=== PATIENT | female | born 1990 ===

== ENCOUNTER 2022-04-11 14:02 | Inpatient (IN) | payer SELFPAY ==
[2022-04-11] MEDS ORDERED: ONDANSETRON 4 MG/2 ML INJ IV ONE (21:27)
[2022-04-11] MEDS ORDERED: MORPHINE 4 MG/1 ML INJ IV ONE (21:27)
[2022-04-11] MEDS ORDERED: SODIUM CHLORIDE 0.9% 1000 ML 1,000 ML IV ONE (21:27)
[2022-04-11] MEDS ORDERED: ACETAMINOPHEN 325 MG TAB PO ONE (21:28)
[2022-04-11 22:07] LABS: Color,Urine Yellow (Yellow)
[2022-04-11 22:10] LABS: Bacteria,Urine 1+ /HPF (Negative); Mucus,Urine 3+ /HPF
[2022-04-11 22:11] LABS: HCG Qualitative,Urine Negative (Negative)
[2022-04-11 22:13] LABS: Basophils % (Auto) 0.2 % (0.0-1.8); Hematocrit 33.7 % (30.3-42.9); Hemoglobin 11.8 gm/dl (10.1-14.3); Lymphocytes # (Auto) 1.4 K/mm3 (1.2-5.4); Lymphocytes % (Auto) 7.6 % (13.4-35.0); Mean Corpuscular HGB Conc 35 % (30-34); Mean Corpuscular Volume 94 fl (79-97); Monocytes # (Auto) 1.9 K/mm3 (0.0-0.8); Monocytes % (Auto) 10.7 % (0.0-7.3); Platelet Count 278 K/mm3 (140-440); Red Blood Count 3.57 M/mm3 (3.65-5.03)
[2022-04-11 22:36] LABS: Alanine Aminotransferase 33 units/L (7-56); Blood Urea Nitrogen 8 mg/dL (7-17); Calcium 8.6 mg/dL (8.4-10.2); Hemolysis Index 3
--- NOTE | 2022-04-11 22:51 | Emergency Department Report ---
ED Abdominal Pain HPI - General Chief Complaint: Abdominal Pain Stated Complaint: STOMACH PAIN Time Seen by Provider: 04/11/22 21:26 Source: patient Mode of arrival: Ambulatory Limitations: No Limitations - History of Present Illness Initial Comments: 31-year-old female with no significant past medical history reports to the ER with since with nausea vomiting diarrhea patient also reports that headache as well as blood within her urine. Patient reports her pain is 10 out of 10. Patient reports she is not been able to eat or drink for the last 2 days. Patient denies any vaginal pain. Patient reports taking atgi-mhy-yqkvarp medication with no relief. Patient is [place]-speaking [place] interpretation services used. Severity scale (0 -10): 8 - Related Data Allergies Allergy/AdvReac Type Severity Reaction Status Date / Time No Known Allergies Allergy Unverified 04/11/22 14:38 ED Review of Systems ROS: Stated complaint: STOMACH PAIN Other details as noted in HPI Constitutional: denies: chills, fever Eyes: denies: eye pain, eye discharge, vision change ENT: denies: ear pain, throat pain Respiratory: denies: cough, shortness of breath, wheezing Cardiovascular: denies: chest pain, palpitations Endocrine: no symptoms reported Gastrointestinal: abdominal pain, nausea, vomiting, diarrhea Genitourinary: dysuria, hematuria. denies: urgency, discharge Musculoskeletal: denies: back pain, joint swelling, arthralgia Skin: denies: rash, lesions Neurological: denies: headache, weakness, paresthesias Psychiatric: denies: anxiety, depression Hematological/Lymphatic: denies: easy bleeding, easy bruising ED Past Medical Hx - Past Medical History Previous Medical History?: No ED Physical Exam - General Limitations: No Limitations General appearance: alert, in no apparent distress - Head Head exam: Present: atraumatic, normocephalic - Eye Eye exam: Present: normal appearance - ENT ENT exam: Present: mucous membranes moist - Neck Neck exam: Present: normal inspection - Respiratory Respiratory exam: Present: normal lung sounds bilaterally. Absent: respiratory distress - Cardiovascular Cardiovascular Exam: Present: regular rate, normal rhythm. Absent: systolic murmur, diastolic murmur, rubs, gallop - GI/Abdominal GI/Abdominal exam: Present: soft, distended, tenderness, normal bowel sounds. Absent: guarding, rebound - Extremities Exam Extremities exam: Present: normal inspection - Back Exam Back exam: Present: normal inspection - Neurological Exam Neurological exam: Present: alert, oriented X3 - Psychiatric Psychiatric exam: Present: normal affect, normal mood - Skin Skin exam: Present: warm, dry, intact, normal color. Absent: rash ED Course Vital Signs 04/11/22 04/11/22 04/12/22 14:34 20:59 02:20 Temperature 101.1 F H Pulse Rate 113 H 108 H 87 Respiratory 14 12 12 Rate Blood Pressure 122/76 105/70 100/61 [Right] O2 Sat by Pulse 100 100 100 Oximetry - Consultations Consultation #1: 04/12/22 00:56 Paged [facility] [place]. ROY for admission for acute polynephritis with fever and with a WBC of 17.9 with the patient uncontrolled pain as well as unable to eat or drink for 2 days. ED Medical Decision Making - Lab Data Result diagrams: 04/11/22 21:47 04/11/22 21:47 - Radiology Data Radiology results: [place] [address] Cat Scan Report Signed Patient: VIET TOSCANO MR#: [id number] : 1990 Acct:[id number] Age/Sex: 31 / F ADM Date: 04/11/22 Loc: ED Attending Dr: Ordering Physician: ANTONIO MATTHEWS NP Date of Service: 04/11/22 Procedure(s): CT abdomen pelvis w con Accession Number(s): [id number] cc: ANTONIO MATTHEWS NP CT ABDOMEN AND PELVIS WITH CONTRAST INDICATION: abdominal pain with fever CONTRAST: 100 cc Omnipaque 350 IV COMPARISON: None available. All CT scans at this location are performed using CT dose reduction for ALARA by means of automated exposure control. FINDINGS: Lung bases show atelectatic changes and possible interstitial edema though the increased interstitial markings are of unknown chronicity. No areas of consolidation are seen however. No pneumoperitoneum. Gallbladder and bile ducts normal. No significant abnormalities seen of liver, spleen, pancreas, or adrenals. No lymphadenopathy. No free fluid. Appendix normal. No bowel obstruction. No significant abdominal wall herniation. Left kidney normal. No urinary obstructive changes. Patchy hypodensity is seen in the right kidney upper pole and slightly in the midportion anterolaterally. This is ill-defined and is of concern for focal areas of pyelonephritis. The right kidney appears slightly edematous as well. Probable small cysts are also seen in the upper pole and lower pole. Ureters show no abnormalities. Urinary bladder shows no abnormalities. No pelvic masses. IMPRESSION: Findings of concern for right pyelonephritis. No obstructive changes are seen. Focal areas of hypodensity are noted which may represent more focal infection. Follow- up is suggested with CT to monitor for developing renal abscesses. Signer Name: Brayden Tuttle MD Signed: 04/12/2022 12:38 AM Workstation Name: [id number] Transcribed By: ABDULKADIR Dictated By: Brayden Tuttle MD Electronically Authenticated By: Brayden Tuttle MD Signed Date/Time: 04/12/2237 DD/ TD/TT: - Medical Decision Making 31-year-old female with no significant medical history reports to the ER with complaints of abdominal pain with nausea vomiting diarrhe since . Patient reports the last 2 days she is unable to eat or drink. Patient reports a fever. Patient reports no relief from pain with OTC medications. Physical exam patient has diffuse abdominal pain with no acute abdominal signs. CBC with a white count of 17.9 Urinalysis with leukocytes and nitrites present CT. IMPRESSION: Findings of concern for right pyelonephritis. No obstructive changes are seen. Focal areas of hypodensity are noted which may represent more focal infection. Follow- up is suggested with CT to monitor for developing renal abscesses. Patient reports no improvement in pain after morphine. Dilaudid ordered 0.5 mg IV. Page [facility] [place] admission for pyelonephritis with elevated white count of 17.9 with uncontrolled pain. And fever. Patient accepted by [facility] for admission to the hospital. Patient was informed using [place] interpretation services to explain plan of care and reason for admission. Patient verbalized understanding and agrees with plan of care. Vital Signs 04/11/22 04/11/22 04/12/22 14:34 20:59 02:20 Temperature 101.1 F H Pulse Rate 113 H 108 H 87 Respiratory 14 12 12 Rate Blood Pressure 122/76 105/70 100/61 [Right] O2 Sat by Pulse 100 100 100 Oximetry Lab Results 04/11/22 04/11/22 04/11/22 Range/Units 21:47 21:47 21:55 WBC 17.9 H (4.5-11.0) K/mm3 RBC 3.57 L (3.65-5.03) M/mm3 Hgb 11.8 (10.1-14.3) gm/dl Hct 33.7 (30.3-42.9) % MCV 94 (79-97) fl MCH 33 H (28-32) pg MCHC 35 H (30-34) % RDW 13.0 L (13.2-15.2) % Plt Count 278 (140-440) K/mm3 Lymph % (Auto) 7.6 L (13.4-35.0) % Sac % (Auto) 10.7 H (0.0-7.3) % Eos % (Auto) 0.0 (0.0-4.3) % Baso % (Auto) 0.2 (0.0-1.8) % Lymph # (Auto) 1.4 (1.2-5.4) K/mm3 Sac # (Auto) 1.9 H (0.0-0.8) K/mm3 Eos # (Auto) 0.0 (0.0-0.4) K/mm3 Baso # (Auto) 0.0 (0.0-0.1) K/mm3 Seg Neutrophils % 81.5 H (40.0-70.0) % Seg Neutrophils # 14.6 H (1.8-7.7) K/mm3 Sodium 136 L (137-145) mmol/L Potassium 3.3 L (3.6-5.0) mmol/L Chloride 101.6 (98-107) mmol/L Carbon Dioxide 20 L (22-30) mmol/L Anion Gap 18 mmol/L BUN 8 (7-17) mg/dL Creatinine 0.5 L (0.6-1.2) mg/dL Estimated GFR > 60 ml/min BUN/Creatinine Ratio 16 % Glucose 99 (65-100) mg/dL Calcium 8.6 (8.4-10.2) mg/dL Total Bilirubin 1.00 (0.1-1.2) mg/dL AST 17 (5-40) units/L ALT 33 (7-56) units/L Alkaline Phosphatase 86 (35-129) units/L Total Protein 7.0 (6.3-8.2) g/dL Albumin 4.0 (3.9-5) g/dL Albumin/Globulin Ratio 1.3 % Lipase 20 (13-60) units/L Urine Color Yellow (Yellow) Urine Turbidity Slightly cloudy (Clear) Specific [place] (Man) 1.015 (1.003-1.030) Ur Protein (Man) 2+ (Negative) mg/dL Ur Ketones (Man) 4+ (Negative) Ur Nitrite (Man) Positive (Negative) Urine Bilirubin (Man) Negative (Negative) Leukocyte Esterase (Man) Small (Negative) Urine WBC (Auto) 94.0 H (0.0-6.0) /HPF Urine RBC (Auto) 8.0 (0.0-6.0) /HPF U Epithel Cells (Auto) 3.0 (0-13.0) /HPF Urine Bacteria (Auto) 1+ (Negative) /HPF Urine RBC (Manual) 3+ (Negative) Urine Mucus 3+ /HPF Urine Yeast (Budding) Few /HPF Urine HCG, Qual Negative (Negative) Critical care attestation.: If time is entered above; I have spent that time in minutes in the direct care of this critically ill patient, excluding procedure time. ED Disposition Clinical Impression: Pyelonephritis Leukocytosis Qualifiers: Leukocytosis type: other Qualified Code(s): D72.828 - Other elevated white blood cell count Abdominal pain Qualifiers: Abdominal location: generalized Qualified Code(s): R10.84 - Generalized abdominal pain Nausea & vomiting Qualifiers: Vomiting type: unspecified Qualified Code(s): R11.2 - Nausea with vomiting, unspecified Disposition: 09 ADMITTED INPATIENT Is pt being admited?: Yes Condition: Stable
[2022-04-11 23:18] LABS: BUN/Creatinine Ratio 16
--- NOTE | 2022-04-12 00:42 | Cat Scan Report ---
CT ABDOMEN AND PELVIS WITH CONTRAST INDICATION: abdominal pain with fever CONTRAST: 100 cc Omnipaque 350 IV COMPARISON: None available. All CT scans at this location are performed using CT dose reduction for ALARA by means of automated e xposure control. FINDINGS: Lung bases show atelectatic changes and possible interstitial edema though the increased in terstitial markings are of unknown chronicity. No areas of consolidation are seen however. No pneumoperitoneum. Gallbladder and bile ducts normal. No significant abnormalities seen of liver, s pleen, pancreas, or adrenals. No lymphadenopathy. No free fluid. Appendix normal. No bowel obstructio n. No significant abdominal wall herniation. Left kidney normal. No urinary obstructive changes. Patchy hypodensity is seen in the right kidney up per pole and slightly in the midportion anterolaterally. This is ill-defined and is of concern for fo lenora areas of pyelonephritis. The right kidney appears slightly edematous as well. Probable small cyst s are also seen in the upper pole and lower pole. Ureters show no abnormalities. Urinary bladder show s no abnormalities. No pelvic masses. IMPRESSION: Findings of concern for right pyelonephritis. No obstructive changes are seen. Focal area s of hypodensity are noted which may represent more focal infection. Follow-up is suggested with CT t o monitor for developing renal abscesses. Signer Name: Brayden Tuttle MD Signed: 04/12/2022 12:38 AM Workstation Name: [email or web address]
[2022-04-12] MEDS ORDERED: HYDROmorphone 0.5 MG/0.5 ML INJ IV ONE (00:52)
[2022-04-12] MEDS ORDERED: cefTRIAXone/NS 1 GM/50 ML 1 GM/50 ML BAG IV ONE (00:53)
[2022-04-12] MEDS ORDERED: ONDANSETRON 4 MG/2 ML INJ IV PRN (01:37)
[2022-04-12] MEDS ORDERED: MORPHINE 2 MG/1 ML INJ IV PRN (01:37)
[2022-04-12] MEDS ORDERED: ACETAMINOPHEN 325 MG TAB PO PRN (01:37)
--- NOTE | 2022-04-12 01:44 | History and Physical Report ---
History of Present Illness Date of examination: 04/12/22 Date of admission: 04/12/22 Chief complaint: Abdominal pain History of present illness: 31-year-old female with no significant past medical history reports to the ER with since with nausea vomiting diarrhea patient also reports that headache as well as blood within her urine. Patient reports her pain is 10 out of 10. Patient reports she is not been able to eat or drink for the last 2 days. Patient denies any vaginal pain. Patient reports taking [id number] medication with no relief. In the emergency room patient WBC is 17.9. CT scan of the abdomen pelvis shows pyelonephritis. Urine shows UTI we will going to admit the patient we will put the patient on IV antibiotic and IV fluid Past History Past Surgical History: No surgical history Social history: no significant social history Family history: no significant family history Medications and Allergies Allergies Allergy/AdvReac Type Severity Reaction Status Date / Time No Known Allergies Allergy Unverified 04/11/22 14:38 Active Meds: Active Medications Acetaminophen (Acetaminophen 325 Mg Tab) 650 mg PO Q4H PRN PRN Reason: Pain MILD(1-3)/Fever >100.5/POLLACK Famotidine (Famotidine 20 Mg/2 Ml Inj) 20 mg IV BID JAZZ Sodium Chloride (Nacl 0.45% 1000 Ml) 1,000 mls @ 100 mls/hr IV DIRECT JAZZ Ceftriaxone Sodium (Rocephin/Ns 2 Gm/100 Ml) 2 gm in 100 mls @ 200 mls/hr IV Q24H JAZZ; Protocol Morphine Sulfate (Morphine 2 Mg/1 Ml Inj) 2 mg IV Q4H PRN PRN Reason: Pain, Moderate (4-6) Morphine Sulfate (Morphine 4 Mg/1 Ml Inj) 4 mg IV Q4H PRN PRN Reason: Pain , Severe (7-10) Ondansetron HCl (Ondansetron 4 Mg/2 Ml Inj) 4 mg IV Q8H PRN PRN Reason: Nausea And Vomiting Sodium Chloride (Sodium Chloride 0.9% 10 Ml Flush Syringe) 10 ml IV BID JAZZ Sodium Chloride (Sodium Chloride 0.9% 10 Ml Flush Syringe) 10 ml IV PRN PRN PRN Reason: LINE FLUSH Review of Systems All systems: negative Gastrointestinal: abdominal pain, nausea, vomiting Exam - Constitutional Vitals: Temp Pulse Resp BP Pulse Ox 101.1 F H 108 H 12 105/70 100 04/11/22 14:34 04/11/22 20:59 04/11/22 20:59 04/11/22 20:59 04/11/22 20:59 General appearance: Present: no acute distress, well-nourished - EENT Eyes: Present: PERRL ENT: hearing intact, clear oral mucosa - Neck Neck: Present: supple, normal ROM - Respiratory Respiratory effort: normal Respiratory: bilateral: CTA - Cardiovascular Heart Sounds: Present: S1 & S2. Absent: rub, click - Extremities Extremities: pulses symmetrical, No edema Peripheral Pulses: within normal limits - Abdominal General gastrointestinal: Present: soft, non-tender, non-distended, normal bowel sounds Female genitourinary: Present: normal - Integumentary Integumentary: Present: clear, warm, dry - Musculoskeletal Musculoskeletal: gait normal, strength equal bilaterally - Psychiatric Psychiatric: appropriate mood/affect, intact judgment & insight - Neurologic Neurologic: CNII-XII intact, moves all extremities Results - Labs CBC & Chem 7: 04/11/22 21:47 04/11/22 21:47 Labs: Laboratory Last Values WBC 17.9 K/mm3 (4.5-11.0) H 04/11/22 21:47 RBC 3.57 M/mm3 (3.65-5.03) L 04/11/22 21:47 Hgb 11.8 gm/dl (10.1-14.3) 04/11/22 21:47 Hct 33.7 % (30.3-42.9) 04/11/22 21:47 MCV 94 fl (79-97) 04/11/22 21:47 MCH 33 pg (28-32) H 04/11/22 21:47 MCHC 35 % (30-34) H 04/11/22 21:47 RDW 13.0 % (13.2-15.2) L 04/11/22 21:47 Plt Count 278 K/mm3 (140-440) 04/11/22 21:47 Lymph % (Auto) 7.6 % (13.4-35.0) L 04/11/22 21:47 [place] % (Auto) 10.7 % (0.0-7.3) H 04/11/22 21:47 Eos % (Auto) 0.0 % (0.0-4.3) 04/11/22 21:47 Baso % (Auto) 0.2 % (0.0-1.8) 04/11/22 21:47 Lymph # (Auto) 1.4 K/mm3 (1.2-5.4) 04/11/22 21:47 [place] # (Auto) 1.9 K/mm3 (0.0-0.8) H 04/11/22 21:47 Eos # (Auto) 0.0 K/mm3 (0.0-0.4) 04/11/22 21:47 Baso # (Auto) 0.0 K/mm3 (0.0-0.1) 04/11/22 21:47 Seg Neutrophils % 81.5 % (40.0-70.0) H 04/11/22 21:47 Seg Neutrophils # 14.6 K/mm3 (1.8-7.7) H 04/11/22 21:47 Sodium 136 mmol/L (137-145) L 04/11/22 21:47 Potassium 3.3 mmol/L (3.6-5.0) L 04/11/22 21:47 Chloride 101.6 mmol/L (98-107) 04/11/22 21:47 Carbon Dioxide 20 mmol/L (22-30) L 04/11/22 21:47 Anion Gap 18 mmol/L 04/11/22 21:47 BUN 8 mg/dL (7-17) 04/11/22 21:47 Creatinine 0.5 mg/dL (0.6-1.2) L 04/11/22 21:47 Estimated GFR > 60 ml/min 04/11/22 21:47 BUN/Creatinine Ratio 16 % 04/11/22 21:47 Glucose 99 mg/dL (65-100) 04/11/22 21:47 Calcium 8.6 mg/dL (8.4-10.2) 04/11/22 21:47 Total Bilirubin 1.00 mg/dL (0.1-1.2) 04/11/22 21:47 AST 17 units/L (5-40) 04/11/22 21:47 ALT 33 units/L (7-56) 04/11/22 21:47 Alkaline Phosphatase 86 units/L (35-129) 04/11/22 21:47 Total Protein 7.0 g/dL (6.3-8.2) 04/11/22 21:47 Albumin 4.0 g/dL (3.9-5) 04/11/22 21:47 Albumin/Globulin Ratio 1.3 % 04/11/22 21:47 Lipase 20 units/L (13-60) 04/11/22 21:47 Urine Color Yellow (Yellow) 04/11/22 21:55 Urine Turbidity Slightly cloudy (Clear) 04/11/22 21:55 Specific [place] (Man) 1.015 (1.003-1.030) 04/11/22 21:55 Ur Protein (Man) 2+ mg/dL (Negative) 04/11/22 21: Ur Ketones (Man) 4+ (Negative) 04/11/22 21:55 Ur Nitrite (Man) Positive (Negative) 04/11/22 21: Urine Bilirubin (Man) Negative (Negative) 04/11/22 21: Leukocyte Esterase (Man) Small (Negative) 04/11/22 21:55 Urine WBC (Auto) 94.0 /HPF (0.0-6.0) H 04/11/22 21:55 Urine RBC (Auto) 8.0 /HPF (0.0-6.0) 04/11/22 21:55 U Epithel Cells (Auto) 3.0 /HPF (0-13.0) 04/11/22 21:55 Urine Bacteria (Auto) 1+ /HPF (Negative) 04/11/22 21:55 Urine RBC (Manual) 3+ (Negative) 04/11/22 21:55 Urine Mucus 3+ /HPF 04/11/22 21:55 Urine Yeast (Budding) Few /HPF 04/11/22 21:55 Urine HCG, Qual Negative (Negative) 04/11/22 21:55 - Imaging and Cardiology CT scan - abdomen: report reviewed Assessment and Plan VTE prophylaxis?: Mechanical Plan of care discussed with patient/family: Yes - Patient Problems (1) Pyelonephritis Current Visit: Yes Status: Acute Plan to address problem: Admit the patient to the medical floor. Rocephin 2 g IV daily. Half-normal saline at the rate of 100 cc/h. We will send the urine for culture. Recheck CBC BMP in the morning (2) Leukocytosis Current Visit: Yes Status: Acute Plan to address problem: Rocephin 2 g IV daily. Half-normal saline at the rate of 100 cc/h. We will send the urine for culture. Recheck CBC BMP in the morning (3) Nausea & vomiting Current Visit: Yes Status: Acute Plan to address problem: Pepcid 20 mg IV every 12 hours. Zofran 4 mg IV every 6 hours as needed. We continue the home medication (4) Abdominal pain Current Visit: Yes Status: Acute Plan to address problem: Pepcid 20 mg IV every 12 hours. Zofran 4 mg IV every 6 hours as needed. Morphine 2 mg IV every 4 hours as needed. We continue the home medication (5) Hypokalemia Current Visit: Yes Status: Acute Plan to address problem: Potassium is supplemented. Recheck BMP in the morning (6) DVT prophylaxis Current Visit: Yes Status: Acute Plan to address problem: SCD for DVT prophylaxis. Pepcid 20 mg IV every 12 hours for GI prophylaxis. Patient is a full code
[2022-04-12] MEDS ORDERED: SODIUM CHLORIDE 0.45% 1000 ML 1,000 ML IV SCH (02:00)
[2022-04-12] MEDS: MORPHINE 4 MG/1 ML INJ IV PRN ×2 (03:37→16:16)
[2022-04-12] MEDS: cefTRIAXone/NS 2 GM/100 ML 2 GM/100 ML BAG IV SCH (09:04)
[2022-04-12] MEDS: FAMOTIDINE 20 MG TAB PO SCH ×2 (09:04→21:50)
[2022-04-12] MEDS: POTASSIUM CHLORIDE ER 20 MEQ TAB PO SCH ×2 (09:04→21:50)
--- NOTE | 2022-04-12 09:30 | Electrocardiograph Report ---
[facility] Test Date: 2022-04-11 Test Time: 14:52:15 Pat Name: VIET NIELSEN Department: Room: A3 1 Gender: F [employer]: COMPA : 1990 Requested By: LE BILLS Order Number: [id number] Reading MD: Soren Aly Measurements Intervals [place] Rate: 104 P: 54 PA: 113 QRS: 66 QRSD: 86 T: 27 QT: 347 QTc: 457 Interpretive Statements Sinus tachycardia No previous ECG available for comparison Electronically Signed On 04-12-2022 9:30:08 EDT by Soren Aly
[2022-04-12] MEDS ORDERED: FAMOTIDINE 20 MG/2 ML INJ IV SCH (10:00)
--- NOTE | 2022-04-12 16:02 | Event Note ---
Date: 04/12/22 Patient was evaluated this morning, she was found to be hemodynamically stable. #Sepsis secondary to acute pyelonephritis #Acute pyelonephritis #Nausea and vomiting Urinalysis revealing positive nitrites, small leukocyte esterase, WBC 94, 1+ bacteria Febrile at 101.1, heart rate 113, leukocytosis 17.9 Continue Rocephin 2 g daily. When patient's pain has resolved and leukocytosis has improved, patient can be transitioned to oral Levaquin 500 mg daily. Continue analgesics and antiemetics as needed. Continue to monitor. #Hypokalemia Potassium 3.3 Repleting. Continue to monitor with repeat BMP tomorrow morning. #Coordination of CARE time: 30 minutes. Total visit time equals 30 or more minutes with greater than 50% spent [id number] on coordination of care and counseling. #Advanced care planning -Disease education conducted, care plan discussed, diagnoses discussed, prognosis discussed, and patient acknowledges understanding with care plan -Time: +30 min
[2022-04-13] MEDS: cefTRIAXone/NS 2 GM/100 ML 2 GM/100 ML BAG IV SCH (09:04)
[2022-04-13] MEDS: FAMOTIDINE 20 MG TAB PO SCH ×2 (09:04→22:11)
[2022-04-13 10:12] LABS: Basophils % (Auto) 0.2 % (0.0-1.8); Eosinophils # (Auto) 0.1 K/mm3 (0.0-0.4); Eosinophils % (Auto) 0.5 % (0.0-4.3); Hematocrit 33.2 % (30.3-42.9); Hemoglobin 11.6 gm/dl (10.1-14.3); Lymphocytes # (Auto) 1.8 K/mm3 (1.2-5.4); Lymphocytes % (Auto) 15.2 % (13.4-35.0); Mean Corpuscular HGB Conc 35 % (30-34); Mean Corpuscular Volume 94 fl (79-97); Monocytes # (Auto) 1.3 K/mm3 (0.0-0.8); Monocytes % (Auto) 11.2 % (0.0-7.3); Platelet Count 293 K/mm3 (140-440); Red Blood Count 3.54 M/mm3 (3.65-5.03)
[2022-04-13 10:21] LABS: Blood Urea Nitrogen 7 mg/dL (7-17); Calcium 8.5 mg/dL (8.4-10.2); Hemolysis Index 0
[2022-04-13 10:34] LABS: BUN/Creatinine Ratio 14
--- NOTE | 2022-04-13 13:30 | Progress Note ---
Assessment and Plan Assessment and plan: #Sepsis secondary to acute pyelonephritisimproving #Acute pyelonephritis #Nausea and vomitingresolved Urinalysis revealing positive nitrites, small leukocyte esterase, WBC 94, 1+ b acteria Febrile at 101.1, heart rate 113, leukocytosis 17.9-->12.0 Continue Rocephin 2 g daily. When patient's pain has resolved and leukocytosis has improved, patient can be transitioned to oral Levaquin 500 mg daily. Continue analgesics and antiemetics as needed. Continue to monitor. #Hypokalemia and takesresolved Potassium 3.3 Repleting. Continue to monitor with repeat BMP tomorrow morning. #Advanced care planning -Disease education conducted, care plan discussed, diagnoses discussed, prognosis discussed, and patient acknowledges understanding with care plan -Time: +30 min Disposition Plan: Continue medical management Total Time Spent with Patient (Minutes): 45 min History Interval history: No acute events overnight. Hospitalist Physical - Constitutional Vitals: Temp Pulse Resp BP Pulse Ox 98.9 F 81 18 108/62 99 04/13/22 11:25 04/13/22 11:25 04/13/22 11:25 04/13/22 11:25 04/13/22 11:25 General appearance: Present: no acute distress, well-nourished - EENT Eyes: Present: PERRL, EOM intact ENT: hearing intact, clear oral mucosa, dentition normal - Neck Neck: Present: supple, normal ROM - Respiratory Respiratory effort: normal Respiratory: bilateral: CTA - Cardiovascular Rhythm: regular Heart Sounds: Present: S1 & S2 - Extremities Extremities: no ischemia, pulses intact, pulses symmetrical, No edema, normal temperature, normal color, Full ROM Peripheral Pulses: within normal limits - Abdominal General gastrointestinal: soft, tender, non-distended, normal bowel sounds Localized gastrointestinal: tender: diffuse - Integumentary Integumentary: Present: clear, warm, dry - Psychiatric Psychiatric: appropriate mood/affect, intact judgment & insight, memory intact, cooperative - Neurologic Neurologic: CNII-XII intact, moves all extremities - Allied Health Allied health notes reviewed: nursing Results - Labs CBC & Chem 7: 04/13/22 09:42 04/13/22 09:42 Labs: Laboratory Last Values WBC 12.0 K/mm3 (4.5-11.0) H 04/13/22 09:42 RBC 3.54 M/mm3 (3.65-5.03) L 04/13/22 09:42 Hgb 11.6 gm/dl (10.1-14.3) 04/13/22 09:42 Hct 33.2 % (30.3-42.9) 04/13/22 09:42 MCV 94 fl (79-97) 04/13/22 09:42 MCH 33 pg (28-32) H 04/13/22 09:42 MCHC 35 % (30-34) H 04/13/22 09:42 RDW 13.0 % (13.2-15.2) L 04/13/22 09:42 Plt Count 293 K/mm3 (140-440) 04/13/22 09:42 Lymph % (Auto) 15.2 % (13.4-35.0) 04/13/22 09:42 [place] % (Auto) 11.2 % (0.0-7.3) H 04/13/22 09:42 Eos % (Auto) 0.5 % (0.0-4.3) 04/13/22 09:42 Baso % (Auto) 0.2 % (0.0-1.8) 04/13/22 09:42 Lymph # (Auto) 1.8 K/mm3 (1.2-5.4) 04/13/22 09:42 [place] # (Auto) 1.3 K/mm3 (0.0-0.8) H 04/13/22 09:42 Eos # (Auto) 0.1 K/mm3 (0.0-0.4) 04/13/22 09:42 Baso # (Auto) 0.0 K/mm3 (0.0-0.1) 04/13/22 09:42 Seg Neutrophils % 72.9 % (40.0-70.0) H 04/13/22 09:42 Seg Neutrophils # 8.7 K/mm3 (1.8-7.7) H 04/13/22 09:42 Sodium 136 mmol/L (137-145) L 04/13/22 09:42 Potassium 3.9 mmol/L (3.6-5.0) 04/13/22 09:42 Chloride 104.0 mmol/L (98-107) 04/13/22 09:42 Carbon Dioxide 22 mmol/L (22-30) 04/13/22 09:42 Anion Gap 14 mmol/L 04/13/22 09:42 BUN 7 mg/dL (7-17) 04/13/22 09:42 Creatinine 0.5 mg/dL (0.6-1.2) L 04/13/22 09:42 Estimated GFR > 60 ml/min 04/13/22 09:42 BUN/Creatinine Ratio 14 % 04/13/22 09:42 Glucose 94 mg/dL (65-100) 04/13/22 09:42 Calcium 8.5 mg/dL (8.4-10.2) 04/13/22 09:42 Total Bilirubin 1.00 mg/dL (0.1-1.2) 04/11/22 21:47 AST 17 units/L (5-40) 04/11/22 21:47 ALT 33 units/L (7-56) 04/11/22 21:47 Alkaline Phosphatase 86 units/L (35-129) 04/11/22 21:47 Total Protein 7.0 g/dL (6.3-8.2) 04/11/22 21:47 Albumin 4.0 g/dL (3.9-5) 04/11/22 21:47 Albumin/Globulin Ratio 1.3 % 04/11/22 21:47 Lipase 20 units/L (13-60) 04/11/22 21:47 Urine Color Yellow (Yellow) 04/11/22 21:55 Urine Turbidity Slightly cloudy (Clear) 04/11/22 21:55 Specific [place] (Man) 1.015 (1.003-1.030) 04/11/22 21:55 Ur Protein (Man) 2+ mg/dL (Negative) 04/11/22 21:55 Ur Ketones (Man) 4+ (Negative) 04/11/22 21:55 Ur Nitrite (Man) Positive (Negative) 04/11/22 21:55 Urine Bilirubin (Man) Negative (Negative) 04/11/22 21:55 Leukocyte Esterase (Man) Small (Negative) 04/11/22 21:55 Urine WBC (Auto) 94.0 /HPF (0.0-6.0) H 04/11/22 21:55 Urine RBC (Auto) 8.0 /HPF (0.0-6.0) 04/11/22 21:55 U Epithel Cells (Auto) 3.0 /HPF (0-13.0) 04/11/22 21:55 Urine Bacteria (Auto) 1+ /HPF (Negative) 04/11/22 21:55 Urine RBC (Manual) 3+ (Negative) 04/11/22 21:55 Urine Mucus 3+ /HPF 04/11/22 21:55 Urine Yeast (Budding) Few /HPF 04/11/22 21:55 Urine HCG, Qual Negative (Negative) 04/11/22 21:55 [place]/IV: Voiding Method Bedside Commode Active Medications - Current Medications Current Medications: Generic Name Dose Route Start Last Admin Trade Name Freq PRN Reason Stop Dose Admin Acetaminophen 650 mg 04/12/22 01:37 Acetaminophen 325 Mg Tab PO Q4H PRN Pain MILD(1-3)/Fever >100.5/POLLACK Famotidine 20 mg 04/12/22 10:00 04/13/22 09:04 Famotidine 20 Mg Tab PO 20 mg BID JAZZ Administration Ceftriaxone Sodium 2 gm in 100 mls @ 200 mls/hr 04/12/22 10:00 04/13/22 09:04 Rocephin/Ns 2 Gm/100 Ml IV 200 mls/hr Q24HR JAZZ Administration Protocol Morphine Sulfate 2 mg 04/12/22 01:37 Morphine 2 Mg/1 Ml Inj IV Q4H PRN Pain, Moderate (4-6) Morphine Sulfate 4 mg 04/12/22 01:37 04/12/22 16:16 Morphine 4 Mg/1 Ml Inj IV 4 mg Q4H PRN Administration Pain , Severe (7-10) Ondansetron HCl 4 mg 04/12/22 01:37 04/12/22 03:37 Ondansetron 4 Mg/2 Ml Inj IV 4 mg Q8H PRN Administration Nausea And Vomiting Sodium Chloride 10 ml 04/12/22 10:00 04/13/22 09:05 Sodium Chloride 0.9% 10 Ml Flush Syringe IV 10 ml BID JAZZ Administration Sodium Chloride 10 ml 04/12/22 01:37 Sodium Chloride 0.9% 10 Ml Flush Syringe IV PRN PRN LINE FLUSH
[2022-04-14 05:44] LABS: Basophils # (Auto) 0.1 K/mm3 (0.0-0.1); Basophils % (Auto) 0.6 % (0.0-1.8); Eosinophils # (Auto) 0.2 K/mm3 (0.0-0.4); Eosinophils % (Auto) 2.4 % (0.0-4.3); Hematocrit 36.1 % (30.3-42.9); Hemoglobin 12.2 gm/dl (10.1-14.3); Lymphocytes # (Auto) 2.1 K/mm3 (1.2-5.4); Lymphocytes % (Auto) 21.2 % (13.4-35.0); Mean Corpuscular HGB Conc 34 % (30-34); Mean Corpuscular Volume 94 fl (79-97); Monocytes % (Auto) 10.6 % (0.0-7.3); Platelet Count 340 K/mm3 (140-440); Red Blood Count 3.83 M/mm3 (3.65-5.03)
[2022-04-14 06:03] LABS: Blood Urea Nitrogen 9 mg/dL (7-17); Hemolysis Index 1
[2022-04-14 06:05] LABS: BUN/Creatinine Ratio 23
[2022-04-14] MEDS: FAMOTIDINE 20 MG TAB PO SCH (09:20)
[2022-04-14] MEDS ORDERED: SULFAMETHOXAZOLE/TRIMETHOPRIM 800/160MG DS TAB PO SCH (10:00)
--- NOTE | 2022-04-14 11:15 | Discharge Summary ---
Providers - Providers Date of Admission: 04/12/22 01:37 Date of discharge: 04/14/22 Attending physician: LE BILLS MD Primary care physician: SAM ACUNA Hospitalization Reason for admission: Sepsis secondary to acute pyelonephritis, hypokalemia Condition: Stable Pertinent studies: Reviewed. Procedures: None. Hospital course: Patient is a 31-year-old female with no significant past medical history presented to the ED with complaints of nausea, vomiting, diarrhea, and headache as well as mild hematuria. Patient described abdominal pain as 10 out of 10. She also endorsed not being able to eat or drink for the previous 48 hours prior to presentation in the ED. The patient on presentation was hemodynamically stable and found to be febrile to 101.1 and tachycardic at 113. Patient's labs are remarkable for leukocytosis of 17.9, potassium 3.3, and bicarbonate 21. The patient underwent CT abdomen and pelvis that was concerning for "right pyelonephritis". Patient was initiated on Rocephin 1 g every 24 hours in addition to analgesics. Urinalysis revealed positive nitrites, small leukocyte esterase, WBC 94, 1+ bacteria. Patient's pain has significantly decreased, and the patient sepsis (febrile, tachycardic, and urinary source) has since resolved. The patient has been transitioned to Bactrim DS 1 tab twice daily to complete a 7-day course of antibiotics. Patient expresses understanding. Patient is medically clear for discharge. Disposition: 01 HOME / SELF CARE / HOMELESS Final Discharge Diagnosis (Prints w/discharge instructions): Sepsis secondary to acute pyelonephritis, acute pyelonephritis, nausea vomiting Time spent for discharge: 45 min Core Measure Documentation - Palliative Care Palliative Care/ Comfort Measures: Not Applicable - Core Measures Any of the following diagnoses?: none Exam - Constitutional Vitals: Temp Pulse Resp BP Pulse Ox 98.4 F 89 18 98/68 98 04/14/22 04:25 04/13/22 21:47 04/14/22 04:25 04/14/22 04:25 04/14/22 10:00 General appearance: Present: no acute distress, well-nourished - EENT Eyes: Present: PERRL, EOM intact ENT: hearing intact, clear oral mucosa, dentition normal - Neck Neck: Present: supple, normal ROM - Respiratory Respiratory effort: normal Respiratory: bilateral: CTA - Cardiovascular Rhythm: regular Heart Sounds: Present: S1 & S2 - Extremities Extremities: no ischemia, pulses intact, pulses symmetrical, No edema, normal temperature, normal color, Full ROM Peripheral Pulses: within normal limits - Abdominal General gastrointestinal: Present: soft, non-tender, non-distended, normal bowel sounds Localized gastrointestinal: tender: suprapubic (3/10 pain) Female genitourinary: Present: deferred - Rectal Rectal Exam: deferred - Integumentary Integumentary: Present: clear, warm, dry - Musculoskeletal Musculoskeletal: strength equal bilaterally - Psychiatric Psychiatric: appropriate mood/affect, intact judgment & insight, memory intact, cooperative - Neurologic Neurologic: CNII-XII intact, moves all extremities - Allied Health Allied health notes reviewed: nursing Plan Activity: no restrictions Diet: regular Additional Instructions: Patient is a 31-year-old female with no significant past medical history presented to the ED with complaints of nausea, vomiting, diarrhea, and headache as well as mild hematuria. Patient described abdominal pain as 10 out of 10. She also endorsed not being able to eat or drink for the previous 48 hours prior to presentation in the ED. The patient on presentation was hemodynamically stable and found to be febrile to 101.1 and tachycardic at 113. Patient's labs are remarkable for leukocytosis of 17.9, potassium 3.3, and bicarbonate 21. The patient underwent CT abdomen and pelvis that was concerning for "right pyelonephritis". Patient was initiated on Rocephin 1 g every 24 hours in addition to analgesics. Urinalysis revealed positive nitrites, small leukocyte esterase, WBC 94, 1+ bacteria. Patient's pain has significantly decreased, and the patient sepsis (febrile, tachycardic, and urinary source) has since resolved. The patient has been transitioned to Bactrim DS 1 tab twice daily to complete a 7-day course of antibiotics. Patient expresses understanding. Patient is medically clear for discharge. Care Plan Goals: Patient is medically clear for discharge. Assessment: Patient is a 31-year-old female with no significant past medical history presented to the ED with complaints of nausea, vomiting, diarrhea, and headache as well as mild hematuria. Patient described abdominal pain as 10 out of 10. She also endorsed not being able to eat or drink for the previous 48 hours prior to presentation in the ED. The patient on presentation was hemodynamically stable and found to be febrile to 101.1 and tachycardic at 113. Patient's labs are remarkable for leukocytosis of 17.9, potassium 3.3, and bicarbonate 21. The patient underwent CT abdomen and pelvis that was concerning for "right pyelonephritis". Patient was initiated on Rocephin 1 g every 24 hours in addition to analgesics. Urinalysis revealed positive nitrites, small leukocyte esterase, WBC 94, 1+ bacteria. Patient's pain has significantly decreased, and the patient sepsis (febrile, tachycardic, and urinary source) has since resolved. The patient has been transitioned to Bactrim DS 1 tab twice daily to complete a 7-day course of antibiotics. Patient expresses understanding. Patient is medically clear for discharge. Follow up with: SAM ACUNA MD [Primary Care Provider] - 7 Days Prescriptions: Sulfamethoxazole/Trimethoprim [Bactrim DS TAB] 1 each PO Q12HR #9 tablet
[2022-04-14 14:24] VITALS: BP 107/72
== END 2022-04-14 14:43 | disposition home or self-care (01) | DRG 872 ==
LOC: ED 14:02 → 3A 04-12 01:37
PROVIDERS: ADMIT Hospitalist; ATTEND Student in an Organized Health Care Education/Training Program
DX: A41.9 Sepsis, unspecified organism (principal); N10 Acute pyelonephritis; E87.6 Hypokalemia
CPT/HCPCS: 36415; 74177; 80048; 80053; 81001; 81025; 83690; 85025; 87086; 93005; G0378; J3490; J0696; J1170; J2270; J2405; J7030; Q9967